=== PATIENT | male | born 1940 | race Caucasian/White ===

== ENCOUNTER 2017-09-26 09:01 | Outpatient (CLI) | payer MEDICARE, OTHER ==
[~2017-09-26 09:01] MED LIST: ADV50250 IH; ALPR-624 PO; ASPI-611 PO; CAND1TAB14 PO; OMEP40CA37 PO; OXYGEN PO; PRED5TAB PO; SPIIN INH
== END 2017-09-26 23:59 | disposition home or self-care (01) ==
LOC: RT 09:01
PROVIDERS: ATTEND Internal Medicine Pulmonary Disease
DX: J44.9 Chronic obstructive pulmonary disease, unspecified (principal)
CPT/HCPCS: 94618

== ENCOUNTER 2017-12-12 08:14 | Day surgery (SDC) | payer MEDICARE, OTHER ==
[~2017-12-12] VITALS: Ht 162.6 cm; Wt 46.2 kg
[2017-12-12] MEDS ORDERED: LIDOcaine 1% 30ml preserv. free vial SQ STA (08:26)
[2017-12-12 08:45] VITALS: BP 128/64
[2017-12-12] MEDS ORDERED: PANT-47 PO (10:06)
[2017-12-12] MEDS ORDERED: FURO-150 PO (10:06)
[2017-12-12] MEDS ORDERED: PRED5TAB PO (10:06)
[2017-12-12] MEDS ORDERED: LANTUS SQ (10:06)
[2017-12-12] MEDS ORDERED: LOSA50TA37 PO (10:06)
[2017-12-12] MEDS ORDERED: MAGN400O6 PO (10:06)
[2017-12-12] MEDS ORDERED: UMEC62.5 IH (10:06)
[2017-12-12] MEDS ORDERED: PRED10TA PO (10:06)
[2017-12-12] MEDS ORDERED: OXYB5TAB11 PO (10:06)
[2017-12-12] MEDS ORDERED: FLUT1AER INH (10:06)
[2017-12-12] MEDS ORDERED: MULT-1085 PO (10:06)
[2017-12-12] MEDS ORDERED: MELA3TAB PO (10:06)
[2017-12-12] MEDS ORDERED: BUSP5TAB3 PO (10:08)
[2017-12-12] MEDS ORDERED: ESCI5TAB PO (10:08)
== END 2017-12-12 09:45 | disposition home or self-care (01) ==
LOC: SSTAY O 08:14
PROVIDERS: ATTEND Radiology Vascular & Interventional Radiology
DX: J90 Pleural effusion, not elsewhere classified (principal); J44.9 Chronic obstructive pulmonary disease, unspecified; I10 Essential (primary) hypertension; K21.9 Gastro-esophageal reflux disease without esophagitis; E11.9 Type 2 diabetes mellitus without complications; Z98.41 Cataract extraction status, right eye; Z98.42 Cataract extraction status, left eye; Z85.828 Personal history of other malignant neoplasm of skin; Z79.4 Long term (current) use of insulin; Z87.891 Personal history of nicotine dependence; Z87.01 Personal history of pneumonia (recurrent); Z98.890 Other specified postprocedural states; Z79.899 Other long term (current) drug therapy
CPT/HCPCS: 76604; A6257; J3490

== ENCOUNTER 2018-03-21 08:56 | Day surgery (SDC) | payer MEDICARE, OTHER ==
[~2018-03-21] VITALS: Ht 162.6 cm; Wt 53.6 kg
[~2018-03-21 08:56] MED LIST changes: -ADV50250 IH; -ALPR-624 PO; -ASPI-611 PO; +BUSP5TAB3 PO; -CAND1TAB14 PO; +ESCI5TAB PO; +FLUT1AER INH; +FURO-150 PO; +LANTUS SQ; +LOSA50TA21 PO; +MAGN400O6 PO; +MELA3TAB PO; +MULT-1085 PO; -OMEP40CA37 PO; +OXYB5TAB11 PO; +PANT-47 PO; +PRED10TA PO; -SPIIN INH; +UMEC62.5 IH
[2018-03-21] MEDS ORDERED: ALBU6.7H INH (09:47)
[2018-03-21] MEDS ORDERED: ALBU1.257 NEB (09:48)
[2018-03-21 09:50] VITALS: BP 160/88
[2018-03-21] MEDS ORDERED: ATOR10TA87 PO (09:51)
[2018-03-21] MEDS ORDERED: BUSP30TA2 PO (09:53)
[2018-03-21] MEDS ORDERED: ESCI20TA38 PO (09:54)
[2018-03-21] MEDS ORDERED: FLUT1DIS4 INH (09:55)
[2018-03-21] MEDS ORDERED: GABA-530 PO (09:56)
[2018-03-21] MEDS ORDERED: HYDR-3686 PO (09:57)
[2018-03-21] MEDS ORDERED: FLO0.4C PO (09:58)
[2018-03-21] MEDS ORDERED: TIOT18CA3 IH (09:59)
[2018-03-21] MEDS ORDERED: ESCI10TA54 PO (10:06)
[2018-03-21] MEDS ORDERED: HYDR25TA4 PO (10:07)
[2018-03-21] MEDS ORDERED: TEMA15CA PO (10:11)
[2018-03-21] MEDS ORDERED: fentaNYL/PF 50MCG/1 ML 2ML syringe ONE (10:13)
[2018-03-21] MEDS ORDERED: MIDAZolam 5mg/5ml vial ONE (10:14)
[2018-03-21] MEDS ORDERED: LIDOcaine Viscous 15ml cup ONE (10:14)
[2018-03-21 11:39] VITALS: BP 152/84
[2018-03-21 11:49] VITALS: BP 148/77
[2018-03-21 11:59] VITALS: BP 143/76
[2018-03-21 12:09] VITALS: BP 145/66
== END 2018-03-21 12:26 | disposition home or self-care (01) ==
LOC: GI LAB 08:56 → EDSEX 08:56 → GI LAB 12:26
PROVIDERS: ATTEND Specialist
DX: K22.70 Barrett's esophagus without dysplasia (principal); K21.9 Gastro-esophageal reflux disease without esophagitis; I10 Essential (primary) hypertension; J44.9 Chronic obstructive pulmonary disease, unspecified; E11.9 Type 2 diabetes mellitus without complications; F41.8 Other specified anxiety disorders; Z85.828 Personal history of other malignant neoplasm of skin; Z79.891 Long term (current) use of opiate analgesic; Z79.4 Long term (current) use of insulin; Z87.891 Personal history of nicotine dependence; Z87.01 Personal history of pneumonia (recurrent); Z99.81 Dependence on supplemental oxygen; Z79.899 Other long term (current) drug therapy; Z98.890 Other specified postprocedural states
CPT/HCPCS: 43235; J2250; J3010; J7030; A4620; G0500